=== PATIENT | male | born 1995 | race Caucasian/White ===

== ENCOUNTER 2017-01-25 20:15 | Emergency (ER) | payer OTHER ==
[~2017-01-25 20:15] MED LIST: CEPH-512 PO
[2017-01-25 20:30] VITALS: BP 154/94; PULSE 72; RESP 20; O2SAT 98
--- NOTE | 2017-01-25 21:47 | ED.REPORT ---
HPI-Rash / Abscess Date of Service Jan 25, 2017 ED Provider: Manish Dunn MD Pt is an otherwise healthy 21 year old male who presents to the ED complaining of an abdominal rash onset 1 week ago. The pt reports that his rash is "burning and has an odor." He also expresses concern that brown spots on his skin are cancerous. Pt is otherwise asymptomatic. Nursing Notes Stated Complaint: STOMACH RASH Chief Complaint: Skin Rash/Abscess Nursing Notes Reviewed: Yes Allergies: Coded Allergies: naproxen (Verified Allergy, Unknown, dizzy, swelling, 04/06/16) Scheduled Cephalexin (Keflex) 500 Mg Capsule 500 MG PO QID General Time Seen by MD: 21:42 Chief Complaint Rash Hx Obtained From: Patient Arrived By: Walk-in Onset Occurred: Onset unknown Symptom Duration: Since onset Severity: Current: No pain currently Severity: Maximum: No pain Recent Healthcare: No recent doctor visit, No recent hospitalization Similar Sx Previous: No Past Medical History Past Medical History None Past Surgical History None Smoking History Current Every Day Smoker Social History Alcohol Use: Denies alcohol use Drug Use: THC Ambulatory Status Independent Review of Systems + brown skin spots Constitutional: Denies: Fever GI: Reports: Abdominal pain (burning sensation secondary to rash) Skin: Reports Rash Complete sys rev & neg: except as marked. Physical Exam Initial Vital Signs Vital Signs (First) Date Time Temp Pulse Resp B/P Pulse Ox O2 Delivery O2 Flow Rate FiO2 01/25/17 20:30 36.6 72 20 154/94 98 Room Air Initial VS: Reviewed, Vital signs abnormal Head / Eyes: Atraumatic, Normocephalic Neck: Full range of motion Respiratory: Breath sounds normal Extremities: Vascular intact, Neuro intact Neurologic: Alert, Oriented, Nonfocal Psychiatric: Mood/affect normal, Behavior normal General/Constitutional: Awake, Alert Skin: Warm, Dry, Intact Abdomen: Soft, Non-tender Thickening macerated tissue in the abdominal folds with a slight odor. Re-Eval/Medical Decision Med Decision/Clinical Course Uncomplicated candidate in the skin folds without evidence of bacterial superinfection. Source of Hx: Old records Re-Evaluation/Progress : Time of Eval: 21:50 Re-Evaluation/Progress Note: Pt rechecked. Informed pt of plan for discharge. Pt understands and agrees with plan for discharge. F/U instructions and RTER warnings given. All questions addressed. Counseled Regarding: Diagnosis, Need for follow-up, When/why to return to ED Discharge & Departure Impression: Primary Impression: Candidal intertrigo Disposition: Home Discharge Condition All VS Reviewed: Yes Condition: Stable Patient Instructions: Skin Yeast Infection (ED) Additional Instructions: There is yeast infection in the skin fold. Apply clotrimazole cream twice daily. Use a medicated antifungal powder to keep the fold dry during the day. Follow-up with your primary doctor as needed. Referrals: Sathish Lindsay MD (PCP) Scribe Attestation Portions of this note were transcribed by Nicol Mccauley. I, Dr. Dunn personally performed the history, physical exam and medical decision-making; I reviewed and confirmed the accuracy of the information in the transcribed note. Signed by: Brent Hamilton, 01/25/17. copies to: Sathish Lindsay MD, Howard L MD Jan 25, 2017 21:47 Nicol Carolina Jan 25, 2017 21:53
[2017-01-25 22:41] VITALS: BP 138/84; PULSE 75; RESP 12; O2SAT 96
== END 2017-01-25 22:42 | disposition home or self-care (01) ==
LOC: SED 20:15
DX: B37.2 Candidiasis of skin and nail (principal); F17.200 Nicotine dependence, unspecified, uncomplicated; Z88.6 Allergy status to analgesic agent